=== PATIENT | female | born 1975 | race Caucasian/White ===

== ENCOUNTER 2017-06-20 22:41 | Emergency (ER) | payer OTHER ==
[2017-06-21 00:32] LABS: BASOPHILS # (AUTO) 0.1 10^3/uL (0.0-0.1); BASOPHILS % (AUTO) 0.7 %; EOSINOPHILS # (AUTO) 0.2 10^3/uL (0.0-0.7); EOSINOPHILS % (AUTO) 2.6 %; HCT - HEMATOCRIT 38.3 % (37.0-47.0); HGB - HEMOGLOBIN 13.3 g/dL (12.0-16.0); LYMPHOCYTES # (AUTO) 3.8 10^3/uL (1.5-3.5); LYMPHOCYTES % (AUTO) 49.3 %; MEAN CORPUSCULAR HEMOGLOBIN 31.5 pg (27.0-31.0); MEAN CORPUSCULAR HGB CONC 34.7 g/dL (32.0-36.0); MEAN CORPUSCULAR VOLUME 90.8 fL (81.0-99.0); MEAN PLATELET VOLUME 7.7 fL (7.9-10.8); MONOCYTES # (AUTO) 0.4 10^3/uL (0.0-1.0); MONOCYTES % (AUTO) 5.2 %; NEUTROPHILS # (AUTO) 3.3 10^3/uL (1.5-6.6); NEUTROPHILS % (AUTO) 42.2 %; NUCLEATED RED BLOOD CELLS AUTO 0.1 /100WBC; RED BLOOD COUNT 4.22 10^6/uL (4.20-5.40); RED CELL DISTRIBUTION WIDTH 12.8 % (12.0-15.0); UNCORRECTED WHITE BLOOD COUNT 7.7 x10^3/uL; WHITE BLOOD COUNT 7.7 x10^3/uL (4.8-10.8)
[2017-06-21 00:45] LABS: ALBUMIN/GLOBULIN RATIO 1.3 (1.0-2.2); BILIRUBIN,TOTAL 0.5 mg/dL (0.2-1.0); CALCIUM 9.5 mg/dL (8.5-10.3); CREATININE 0.8 mg/dL (0.4-1.0); POTASSIUM 3.8 mmol/L (3.5-5.0); TOTAL PROTEIN 7.9 g/dL (6.7-8.2)
--- NOTE | 2017-06-21 01:02 | ED Physician Documentation ---
PD HPI CHEST PAIN - Stated complaint Stated Complaint: CHEST PX - Chief complaint Chief Complaint: Cardiac - History obtained from History obtained from: Patient, Family - History of Present Illness Timing - onset: Today Timing - onset during: Rest Timing - details: Gradual onset, Now resolved Quality: Pressure, Sharp Location: Substernal, Left chest, Right chest Improved by: Rest Worsened by: Inspiration Associated symptoms: No: Shortness of air, Diaphoresis, Nausea, Vomiting, Feeling faint / dizzy, General Weakness Similar symptoms before: Has not had sx before Recently seen: Not recently seen - Additional information Additional information: Patient is a 41 year old female with no significant past medical history who is presenting to the emergency department for chest pain. Patient states that she was at her friends house playing cards when she developed some chest pain that was worse with deep breathing. Patient states that she also had some numbness in her left hand. patient states that the numbness that comes and goes has been going on for a long time. Patient states that she was not concerned but her wanted her to come get evaluated. Review of Systems Constitutional: denies: Fever, Chills, Myalgias Eyes: denies: Decreased vision, Photophobia Ears: denies: Ear pain Nose: denies: Rhinorrhea / runny nose, Congestion Throat: denies: Sore throat Cardiac: reports: Chest pain / pressure. denies: Palpitations, Pedal edema, Calf pain Respiratory: reports: Dyspnea. denies: Cough, Hemoptysis, Wheezing GI: denies: Abdominal Pain, Nausea, Vomiting : denies: Dysuria, Frequency Skin: denies: Rash, Lesions Neurologic: reports: Numbness Immunocompromised: denies: Immunocompromised PD PAST MEDICAL HISTORY - Past Surgical History Past Surgical History: Yes Ortho: Arthroscopic surgery /COMPLEX DIRECTOR: section, Oophrectomy HEENT: Tonsil/Adenoidectomy - Present Medications Home Medications: Ambulatory Orders Medication Instructions Recorded Confirmed No Known Home Medications [No 10/02/15 10/02/15 Known Home Medications] - Allergies Allergies/Adverse Reactions: Allergies Allergy/AdvReac Type Severity Reaction Status Date / Time cats Allergy Itching Uncoded 10/02/15 22:19 - Social History Does the pt smoke?: No Smoking Status: Never smoker Does the pt drink ETOH?: No Does the pt have substance abuse?: No - Immunizations Immunizations are current?: Yes - POLST Patient has POLST: No PD ED PE NORMAL - Vitals Vital signs reviewed: Yes - General General: Alert and oriented X 3, No acute distress, Well developed/nourished - HEENT HEENT: Atraumatic, PERRL - Neck Neck: Supple, no meningeal sign, No JVD - Cardiac Cardiac: RRR, No murmur - Respiratory Respiratory: No respiratory distress, Clear bilaterally - Abdomen Abdomen: Soft, Non tender, Non distended - Derm Derm: Normal color, Warm and dry, No rash - Extremities Extremities: No deformity, No tenderness to palpate, No edema - Neuro Neuro: Alert and oriented X 3, softball winder 2-12 intact, No motor deficit, No sensory deficit, Normal speech - Psych Psych: Normal mood, Normal affect Results - Vitals Vitals: Vital Signs - 24 hr 06/20/17 06/21/17 22:47 01:09 Temperature 36.8 C Heart Rate 87 78 Respiratory 18 18 Rate Blood Pressure 155/93 H 132/79 H O2 Saturation 100 100 Oxygen O2 Source Room air - EKG (time done) 2303 Rate: Rate (enter#) (82) Rhythm: NSR [place]: Normal Intervals: Normal SC QRS: Normal Ischemia: Normal ST segments Compare to prior EKG: Old EKG unavailable - Labs Labs: Laboratory Tests 06/21/17 06/21/17 06/21/17 00:25 00:25 00:25 WBC 7.7 RBC 4.22 Hgb 13.3 Hct 38.3 MCV 90.8 MCH 31.5 H MCHC 34.7 RDW 12.8 Plt Count 313 MPV 7.7 L Neut # 3.3 Lymph # 3.8 H Mclean # 0.4 Eos # 0.2 Baso # 0.1 Absolute Nucleated RBC 0.01 Nucleated RBCs 0.1 Sodium 138 Potassium 3.8 Chloride 104 Carbon Dioxide 26 Anion Gap 8.0 BUN 12 Creatinine 0.8 Estimated GFR (MDRD) 79 L Glucose 115 H Calcium 9.5 Total Bilirubin 0.5 AST 38 ALT 67 H Alkaline Phosphatase 77 Troponin I < 0.04 Total Protein 7.9 Albumin 4.4 Globulin 3.5 Albumin/Globulin Ratio 1.3 Lipase 44 PD MEDICAL DECISION MAKING - ED course Complexity details: reviewed old records, reviewed results, re-evaluated patient , considered differential, d/w patient, d/w family ED course: Patient was seen and examined at bedside. ekg was performed and was within normal limits. labs were drawn and urine was collected. Patient had a HEART score of zero and a PERC score of 0. Patient required no further work up at this time and was stable for discharge with outpatient follow up. Departure - Departure Disposition: 01 Home, Self Care Clinical Impression: Chest pain Condition: Good Instructions: ED Chest Pain Costochondritis Follow-Up: primary, care provider [Other] - As Needed Comments: Your diagnostics today were within normal limits. Your pain is unlikely due to your heart or a blood clot. You should take motrin or tylenol as needed for pain. For your peripheral neuropathy you should work on stretching your neck and your shoulders. You should follow up with your pmd if your symptoms worsen or persist. You may return to the emergency department at any time for new, worsening or uncontrollable symptoms. Discharge Date/Time: 06/21/17 01:09
[2017-06-21 01:10] VITALS: BP 132/79
== END 2017-06-21 01:09 | disposition home or self-care (01) ==
LOC: ED 22:41
DX: R07.9 Chest pain, unspecified (principal)
CPT/HCPCS: 36415; 80053; 83690; 84484; 85025; 93005; 99283

== ENCOUNTER 2018-02-10 14:38 | Outpatient (CLI) | payer OTHER ==
[~2018-02-10 14:38] MED LIST: GADOBUTROL 10 MMOL/10 ML SYRINGE ONE
[2018-02-10] MEDS ORDERED: GADOBUTROL 10 MMOL/10 ML SYRINGE IVP ONE (17:04)
--- NOTE | 2018-02-16 17:58 | MRI Report ---
EXAM: LEFT KNEE MRI WITHOUT AND WITH CONTRAST EXAM DATE: 02/10/2018 05:04 PM. CLINICAL HISTORY: Pain in left knee. COMPARISON: None. TECHNIQUE: Multiplanar, multisequence T1-weighted and fluid-sensitive sequences of the knee before an d after administration of intravenous contrast. IV contrast: 9 mL Gadavist given IV, no reaction. Oth er: None. FINDINGS: Bones: No fractures or subluxations. No marrow edema or abnormal enhancement. No bone lesions. 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 Some broad areas of grade 2 chondromalacia on both sides of the medial compartment. Lateral compartme nt is relatively spared. Medial Meniscus: The medial meniscus is intact. Lateral Meniscus: The lateral meniscus is intact. Cruciate Ligaments: The anterior and posterior cruciate ligaments are intact. Collateral Ligaments: The medial collateral and lateral collateral ligamentous structures are intact. Tendons: The quadriceps, patellar, semimembranosus, and popliteus tendons are unremarkable. Musculature: No edema or fatty atrophy. Other: No effusion or synovitis. No loose bodies. Tiny focal popliteal cyst. Benign-appearing ganglio n with normal enhancement, series 1301 image 11. This is seen in the posterior aspect of the medial c ompartment and measures about 7 mm maximally. The medial and lateral retinacula are intact. There is a small amount of edema in the superior lateral aspect of Hoffa's fat pad. Uncertain consequence. IMPRESSION: 1. No bony abnormalities. 2. 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 Broad areas of grade 2 chondrom alacia on both sides of the medial compartment. 3. Benign-appearing ganglion cyst with some typical enhancement seen at the posterior aspect of the m edial compartment measuring about 7 mm. 4. A small amount of edematous change/swelling is seen in the superior lateral aspect of hoffas fat pad. [facility] MUSCULOSKELET[facility] SECTION Referring Provider Line: [phone] SITE ID: [id number]
== END 2018-02-10 14:39 | disposition home or self-care (01) ==
LOC: DI 14:38
PROVIDERS: ATTEND Family Medicine
DX: M94.262 Chondromalacia, left knee (principal); M67.462 Ganglion, left knee; R22.42 Localized swelling, mass and lump, left lower limb
CPT/HCPCS: 73723; A9585

== ENCOUNTER 2018-05-29 17:57 | Emergency (ER) | payer OTHER ==
--- NOTE | 2018-05-29 18:37 | ED Physician Documentation ---
PD HPI UPPER EXT INJURY - Stated complaint Stated Complaint: ELBOW INJURY - Chief complaint Chief Complaint: Ext Problem - History obtained from History obtained from: Patient - History of Present Illness Location: Right, Elbow Type of injury: Other (hit on bottom of a pool 2.5 weeks ago. states accidentally hit it today and increased pain.) Timing - duration: Weeks (2.5) Timing - details: Abrupt onset Pain level max: 8 Pain level now: 4 Improved by: Rest, Ice, Immobilization Worsened by: Moving, Palpating Associated symptoms: No: Weakness, Numbness, Tingling, Swelling Contributing factors: No: Anticoagulated, Prior ortho surgery Recently seen: Not recently seen - Additonal information Additional information: pt is right handed. Review of Systems Constitutional: denies: Fever, Chills Neurologic: denies: Focal weakness, Numbness PD PAST MEDICAL HISTORY - Past Medical History Past Medical History: No - Past Surgical History Past Surgical History: Yes Ortho: Arthroscopic surgery /EXHIBITION DESIGNER: section, Oophrectomy HEENT: Tonsil/Adenoidectomy - Present Medications Home Medications: Ambulatory Orders Medication Instructions Recorded Confirmed No Known Home Medications [No 10/02/15 10/02/15 Known Home Medications] - Allergies Allergies/Adverse Reactions: Allergies Allergy/AdvReac Type Severity Reaction Status Date / Time cats Allergy Itching Uncoded 05/29/18 18:05 - Social History Does the pt smoke?: No Smoking Status: Never smoker Does the pt drink ETOH?: No Does the pt have substance abuse?: No - Immunizations Immunizations are current?: Yes - POLST Patient has POLST: No PD ED PE NORMAL - Vitals Vital signs reviewed: Yes - General General: Alert and oriented X 3, No acute distress - HEENT HEENT: Moist mucous membranes - Derm Derm: Warm and dry - Extremities Extremities: Other (R elbow - TTP over the olecranon process. swelling to lateral epicondyle. pain with pronation and supination. pain with flexion and extension. ) - Neuro Neuro: Alert and oriented X 3 Results - Vitals Vitals: Vital Signs - 24 hr 05/29/18 05/29/18 18:01 19:44 Temperature 36.4 C L Heart Rate 88 89 Respiratory 16 17 Rate Blood Pressure 135/87 H 121/80 O2 Saturation 98 97 Oxygen O2 Source Room air - Rads (name of study) R elbow xray Radiology: Prelim report reviewed, EMP read contemporaneously, See rad report ( No acute findings. No effusion or degenerative changes) Procedures - Splint (location) R arm Splint applied by: Physician, Nurse, Tech Type of splint: Fiberglass, Long arm, Posterior Other: Patient tolerated well, No complications, Neurovascular intact, Sling provided PD MEDICAL DECISION MAKING - ED course Complexity details: reviewed results, re-evaluated patient, considered differential, d/w patient ED course: Patient with R elbow pain for past 2.5 weeks. No acute findings on xray. Possible occult bony injury, will trial in a posterior arm splint. NVI after splint application. Patient counseled regarding signs and symptoms for which I believe and urgent re-evaluation would be necessary. Patient with good understanding of and agreement to plan and is comfortable going home at this time This document was made in part using voice recognition software. While efforts are made to proofread this document, sound alike and grammatical errors may occur. - Sepsis Event Vital Signs: Vital Signs - 24 hr 05/29/18 05/29/18 18:01 19:44 Temperature 36.4 C L Heart Rate 88 89 Respiratory 16 17 Rate Blood Pressure 135/87 H 121/80 O2 Saturation 98 97 Oxygen O2 Source Room air Departure - Departure Disposition: 01 Home, Self Care Clinical Impression: Elbow contusion Qualifiers: Encounter type: initial encounter Laterality: right Qualified Code(s): S50.01XA - Contusion of right elbow, initial encounter Condition: Good Instructions: ED Contusion Elbow Follow-Up: RAJ UP MD [Primary Care Provider] - Within 1 week Comments: Wear the splint until released by your doctor. You should be rechecked in 4-5 days. Your xrays are normal tonight. Return if you worsen. Discharge Date/Time: 05/29/18 19:43
--- NOTE | 2018-05-29 19:14 | XRAY Report ---
Procedure Date: 05/29/2018 Accession Number: [id number] / [id number] Procedure: XR - Elbow 3 View RT CPT Code: FULL RESULT: EXAM: RIGHT ELBOW RADIOGRAPHY EXAM DATE: 05/29/2018 06:37 PM. CLINICAL HISTORY: Right elbow pain. COMPARISON: None. TECHNIQUE: 3 views. FINDINGS: Bones: Normal. No fractures or bone lesions. Joints: Normal. No effusion. No subluxation. Soft Tissues: Minor enthesopathy formation is seen along the triceps tendon insertion on the lateral process. IMPRESSION: No acute findings. No effusion or degenerative changes. [facility]
[2018-05-29 19:45] VITALS: BP 121/80
== END 2018-05-29 19:43 | disposition home or self-care (01) ==
LOC: ED 17:57
DX: S50.01XA Contusion of right elbow, initial encounter (principal); W16.522A Jumping or diving into swimming pool striking bottom causing other injury, initial encounter; Y93.11 Activity, swimming; Y92.830 Public park as the place of occurrence of the external cause
CPT/HCPCS: 29105; 99283